=== PATIENT | male | born 1960 | race Two or more races ===

== ENCOUNTER 2017-09-12 14:31 | Emergency (ER) | payer SELFPAY ==
[~2017-09-12] VITALS: Ht 172.7 cm; Wt 99.8 kg
[2017-09-12] MEDS ORDERED: IV NORMAL SALINE 1000ML BAG 1,000 ML IV SCH (15:27)
[2017-09-12] MEDS ORDERED: HYDROmorphone 2 MG/ML VIAL IV/SQ PRN (15:30)
[2017-09-12] MEDS ORDERED: 0.9 % SODIUM CHLORIDE 10 ML DISP.SYRIN. IV PRN (15:30)
[2017-09-12] MEDS ORDERED: ONDANSETRON PF 4 MG/2 ML VIAL. IV ONE (15:30)
--- NOTE | 2017-09-12 15:33 | PHYS DOC ---
Past Medical History Past Medical History: Diabetes-Type II Past Surgical History: No Surgical History Adult General Chief Complaint Chief Complaint: FLANK PAIN HPI HPI This is a pleasant 57-year-old man albanian speaking male with a diabetes who presents with right lower back pain that began last week and now sharp lower abdominal pain with difficulty urinating that began this morning. Patient realizes he was feeling bad last week and saw her primary care doctor for which she had routine blood work done and was diagnosed with type 2 diabetes. He was placed on pain medications for his back pain and difficulty urinating as well as an oral antidiabetic medication. He began having difficulty urinating progressively over the week difficulty initiating his stream with decreased stream strength and now difficulty urinating at all today. Patient describes sharp lower abdominal pain described as uncomfortable with no radiation to the back, he is mildly nauseous but no vomiting no diarrhea no fevers no chills no UTI symptoms. He's noted no blood in his urine, known trauma to his abdomen. Patient denies any sick contacts or prior history of the same. Patient's pain is moderate 9 of 10 at this time he is having difficult time resting and sitting as he is doing comfortable. Review of Systems Review of Systems Constitutional: Denies fever or chills [] Eyes: Denies change in visual acuity, redness, or eye pain [] HENT: Denies nasal congestion or sore throat [] Respiratory: Denies cough or shortness of breath [] Cardiovascular: No additional information not addressed in HPI [] GI: Does have some lower abdominal pain with mild nausea no vomiting bloody stools or diarrhea or constipation. : Patient describes urgency and dysuria without hematuria Musculoskeletal: He did have some lower back pain that began earlier last week. Denies any joint pain Integument: Denies rash or skin lesions [] Neurologic: Denies headache, focal weakness or sensory changes [] Endocrine: Denies polyuria or polydipsia [] All other systems were reviewed and found to be within normal limits, except as documented in this note. Current Medications Current Medications Current Medications Medications (Trade) Dose Ordered Sig/Bo Start Time Stop Time Status Last Admin Dose Admin Fentanyl Citrate (Fentanyl 2ml Vial) 100 mcg STK-MED ONCE 09/12/17 15:51 09/12/17 15:52 DC Hydromorphone HCl (Dilaudid) 1 mg PRN Q15MIN PRN 09/12/17 15:30 09/12/17 15:48 DC Ketorolac Tromethamine (Toradol) 30 mg 1X ONCE 09/12/17 16:00 09/12/17 16:01 DC 09/12/17 15:44 30 MG Ondansetron HCl (Zofran) 4 mg 1X ONCE 09/12/17 15:30 09/12/17 15:32 DC 09/12/17 15:44 4 MG Sodium Chloride (Normal Saline Flush) 10 ml QSHIFT PRN 09/12/17 15:30 Allergies Allergies Allergies Coded Allergies Type Severity Reaction Last Updated Verified codeine Allergy Intermediate 09/12/17 Yes Physical Exam Physical Exam Constitutional: Well developed, well nourished, mildly uncomfortable mildly diaphoretic HENT: Normocephalic, atraumatic, bilateral external ears normal, oropharynx moist, [] Neck: Normal range of motion, no tenderness, supple, no stridor. [] Cardiovascular:Heart rate regular rhythm, no murmur [] Lungs & Thorax: Bilateral breath sounds clear to auscultation [] Abdomen: Bowel sounds normal, soft, no masses, no pulsatile masses. No guarding rebound organomegaly no specific Hansen's or McBurney's point tenderness to palpation patient does have mild tenderness over the suprapubic region with no obvious distention of his bladder.[] Skin: Warm and diaphoretic no erythema no rash Back: No tenderness, no CVA tenderness. [] Extremities: No tenderness, no cyanosis, no clubbing, ROM intact, no edema. [] Neurologic: Alert and oriented X 3, Psychologic: Affect normal, judgement normal, mood normal. [] Current Patient Data Vital Signs Vital Signs Date Time Temp Pulse Resp B/P (MAP) Pulse Ox O2 Delivery O2 Flow Rate FiO2 09/12/17 16:01 20 100 Room Air 09/12/17 15:00 100 190/123 (145) Lab Values Laboratory Tests Test 09/12/17 15:20 White Blood Count 7.6 x10^3/uL (4.0-11.0) Red Blood Count 4.12 x10^6/uL (4.30-5.70) L Hemoglobin 13.1 g/dL (13.0-17.5) Hematocrit 38.5 % (39.0-53.0) L Mean Corpuscular Volume 94 fL (79-100) Mean Corpuscular Hemoglobin 32 pg (25-35) Mean Corpuscular Hemoglobin Concent 34 g/dL (31-37) Red Cell Distribution Width 12.6 % (11.5-14.5) Platelet Count 267 x10^3/uL (140-400) Neutrophils (%) (Auto) 75 % (31-73) H Lymphocytes (%) (Auto) 19 % (24-48) L Monocytes (%) (Auto) 5 % (0-9) Eosinophils (%) (Auto) 0 % (0-3) Basophils (%) (Auto) 0 % (0-3) Neutrophils # (Auto) 5.7 x10^3uL (1.8-7.7) Lymphocytes # (Auto) 1.5 x10^3/uL (1.0-4.8) Monocytes # (Auto) 0.4 x10^3/uL (0.0-1.1) Eosinophils # (Auto) 0.0 x10^3/uL (0.0-0.7) Basophils # (Auto) 0.0 x10^3/uL (0.0-0.2) Urine Collection Type Unknown Urine Color Warren Urine Clarity Clear Urine pH 5.5 Urine Specific [place] >=1.030 Urine Protein Negative mg/dL (NEG-TRACE) Urine Glucose (UA) >=1000 mg/dL (NEG) Urine Ketones (Stick) Negative mg/dL (NEG) Urine Blood Negative (NEG) Urine Nitrite Negative (NEG) Urine Bilirubin Negative (NEG) Urine Urobilinogen Dipstick 1.0 mg/dL (0.2 mg/dL) Urine Leukocyte Esterase Negative (NEG) Urine RBC Rare /HPF (0-2) Urine WBC Rare /HPF (0-4) Urine Squamous Epithelial Cells Few /LPF Urine Bacteria 0 /HPF (0-FEW) Urine Mucus Marked /LPF Sodium Level 132 mmol/L (136-145) L Potassium Level 3.4 mmol/L (3.5-5.1) L Chloride Level 95 mmol/L (98-107) L Carbon Dioxide Level 24 mmol/L (21-32) Anion Gap 13 (6-14) Blood Urea Nitrogen 16 mg/dL (8-26) Creatinine 1.0 mg/dL (0.7-1.3) Estimated GFR (Cockcroft-Gault) 77.6 BUN/Creatinine Ratio 16 (6-20) Glucose Level 348 mg/dL (70-99) H Calcium Level 9.3 mg/dL (8.5-10.1) Total Bilirubin 1.0 mg/dL (0.2-1.0) Aspartate Amino Transferase (AST) 28 U/L (15-37) Alanine Aminotransferase (ALT) 95 U/L (16-63) H Alkaline Phosphatase 373 U/L (46-116) H Total Protein 8.5 g/dL (6.4-8.2) H Albumin 3.7 g/dL (3.4-5.0) Albumin/Globulin Ratio 0.8 (1.0-1.7) L Lipase 179 U/L (73-393) Laboratory Tests 09/12/17 15:20 Laboratory Tests 09/12/17 15:20 EKG EKG [] Radiology/Procedures Radiology/Procedures [] [facility] [address] [place], [place] [id number] IMAGING REPORT Signed PATIENT: DEE DEE WISE ACCOUNT: [id number] : 1960 LOCATION: ER AGE: 57 SEX: M EXAM STATUS: REG ER ORD. PHYSICIAN: PASCUAL TAPIA MD REASON: right flank pain lower abdomen pain PROCEDURE: CT ABDOMEN PELVIS WO CONTRAST PQRS Compliance Statement: One or more of the following individualized dose reduction techniques were utilized for this examination: 1. Automated exposure control 2. Adjustment of the mA and/or kV according to patient size 3. Use of iterative reconstruction technique CT ABDOMEN PELVIS WO CONTRAST Clinical Indication: right flank pain lower abdomen pain Comparison: None. Technique: Helical CT imaging of the abdomen and pelvis is performed without IV or oral contrast. Findings: The lung bases are clear. Cardiac size normal. There is fatty infiltration of the liver with mild focal fatty sparing along the gallbladder fossa. The gallbladder, spleen, pancreas, adrenal glands, and abdominal aorta caliber are normal. There is no renal, ureteral, or bladder calculus. No perinephric stranding or hydronephrosis. Stomach not well distended. No dilated small bowel. There is no colon wall thickening. The appendix is normal. No abdominal adenopathy or free fluid. The bladder is moderately distended and there is mild perivesical induration. No urinary bladder wall thickening is identified. The prostate is moderately enlarged. There is no pelvic free fluid. No acute bone abnormality. IMPRESSION: 1. The prostate is moderately enlarged. 2. The urinary bladder is moderately distended and there is mild perivesical induration. Considerations include nonspecific cystitis or chronic bladder outlet obstruction. 3. No obstructive uropathy. 4. There is fatty infiltration of the liver. DICTATED and SIGNED BY: ZHAO SIMONS MD DATE: 09/12/17 8105 CC: PASCUAL TAPIA MD; NO PCP ~ Course & Med Decision Making Course & Med Decision Making Pertinent Labs and Imaging studies reviewed. (See chart for details) Quinteros diagnosis initially upon arrival considered []Acute pancreatitis. Appendicitis. Acute hepatitis. Peptic ulcer disease. Nonulcer dyspepsia. Irritable bowel disease. Functional gallbladder disorder. Sphincter of Oddi dysfunction. Diseases of the right kidney. Right-sided pneumonia. Xpns-[id number]-[id number] syndrome Subhepatic or intraabdominal abscess. Perforated viscus. Cardiac ischemia. Black spider envenomation kidney stones, UTI, pyelonephritis, Patient's pain is improved with fluids and antiemetics and pain medication while here in the emergency department. Time is now 4:30 PM Patient's urinalysis was reviewed by me demonstrates glucose but no evidence of ketonuria, although this is only measuring beta hydroxybutyrate this has not been is not in DKA. A stone the patient's bicarbonate and anion gap doubt DKA. Patient's white blood cell count is normal patient's H&H is nice and stable patient's BUN/ creatinine is also normal. Patient is likely suffering from either a any stone or a prosthetic hyperplasia might be causing obstruction. Laboratory Tests Test 09/12/17 15:20 White Blood Count 7.6 x10^3/uL (4.0-11.0) Red Blood Count 4.12 x10^6/uL (4.30-5.70) Hemoglobin 13.1 g/dL (13.0-17.5) Hematocrit 38.5 % (39.0-53.0) Mean Corpuscular Volume 94 fL (79-100) Mean Corpuscular Hemoglobin 32 pg (25-35) Mean Corpuscular Hemoglobin Concent 34 g/dL (31-37) Red Cell Distribution Width 12.6 % (11.5-14.5) Platelet Count 267 x10^3/uL (140-400) Neutrophils (%) (Auto) 75 % (31-73) Lymphocytes (%) (Auto) 19 % (24-48) Monocytes (%) (Auto) 5 % (0-9) Eosinophils (%) (Auto) 0 % (0-3) Basophils (%) (Auto) 0 % (0-3) Neutrophils # (Auto) 5.7 x10^3uL (1.8-7.7) Lymphocytes # (Auto) 1.5 x10^3/uL (1.0-4.8) Monocytes # (Auto) 0.4 x10^3/uL (0.0-1.1) Eosinophils # (Auto) 0.0 x10^3/uL (0.0-0.7) Basophils # (Auto) 0.0 x10^3/uL (0.0-0.2) Urine Collection Type Unknown Urine Color Warren Urine Clarity Clear Urine pH 5.5 Urine Specific [place] >=1.030 Urine Protein Negative mg/dL (NEG-TRACE) Urine Glucose (UA) >=1000 mg/dL (NEG) Urine Ketones (Stick) Negative mg/dL (NEG) Urine Blood Negative (NEG) Urine Nitrite Negative (NEG) Urine Bilirubin Negative (NEG) Urine Urobilinogen Dipstick 1.0 mg/dL (0.2 mg/dL) Urine Leukocyte Esterase Negative (NEG) Urine RBC Rare /HPF (0-2) Urine WBC Rare /HPF (0-4) Urine Squamous Epithelial Cells Few /LPF Urine Bacteria 0 /HPF (0-FEW) Urine Mucus Marked /LPF Sodium Level 132 mmol/L (136-145) Chloride Level 95 mmol/L (98-107) Carbon Dioxide Level 24 mmol/L (21-32) Anion Gap 13 (6-14) Blood Urea Nitrogen 16 mg/dL (8-26) Estimated GFR (Cockcroft-Gault) 77.6 BUN/Creatinine Ratio 16 (6-20) Glucose Level 348 mg/dL (70-99) Calcium Level 9.3 mg/dL (8.5-10.1) Total Bilirubin 1.0 mg/dL (0.2-1.0) Aspartate Amino Transf (AST/SGOT) 28 U/L (15-37) Alkaline Phosphatase 373 U/L (46-116) Total Protein 8.5 g/dL (6.4-8.2) Albumin 3.7 g/dL (3.4-5.0) Albumin/Globulin Ratio 0.8 (1.0-1.7) Lipase 179 U/L (73-393) Miguel Disclaimer Dragon Disclaimer This electronic medical record was generated, in whole or in part, using a voice recognition dictation system. Departure Departure Impression: Primary Impression: Enlarged prostate with urinary retention Additional Impressions: Hyperglycemia Hypokalemia Hyponatremia Disposition: HOME, SELF-CARE Condition: IMPROVED Referrals: WILI KULKARNI MD Patient Instructions: Benign Prostatic Hypertrophy, Indwelling Urinary Catheter Care-Brief, Urinary Retention, Acute, Male Additional Instructions: discharge: I've spoken with the patient and/or caregivers. I've explained the patient's condition, diagnosis and treatment plan based on information available to me at this time. I've answered the patient's and/or caregivers questions and addressed any concerns. The patient and/or caregivers have a good understanding the patient's diagnosis, condition and treatment plan as can be expected at this point. Vital signs have been stabilized. The patient's condition is stable for discharge from the emergency department. The patient will pursue further outpatient evaluation with her primary care provider or other designated consulting physician as outlined in the discharge instructions. Patient and/or caregivers are agreeable to this plan of care and follow-up instructions have been explained in detail. The patient and/or caregivers have received these instructions in written format and expressed understanding of these discharge instructions. The patient and her caregivers are aware that if any significant change in condition or worsening of symptoms should prompt him to immediately return to this of the closest emergency department. If an emergent department is not readily available I would encourage him to call 911. Follow-up urology as arranged by your primary care provider Scripts Tamsulosin Hcl (FLOMAX) 0.4 Mg Cap.er.24h 1 CAP PO DAILY, #30 CAP 0 Refills Prov: PASCUAL TAPIA MD 09/12/17 Problem Qualifiers PASCUAL TAPIA MD Sep 12, 2017 15:33
[2017-09-12 15:35] LABS: BASO % 0 % (0-3); EOS % 0 % (0-3); HEMATOCRIT 38.5 % (39.0-53.0); HEMOGLOBIN 13.1 g/dL (13.0-17.5); LYMPH # 1.5 x10^3/uL (1.0-4.8); LYMPH % 19 % (24-48); MEAN CORPUSCULAR HEMOGLOBIN 32 pg (25-35); MEAN CORPUSCULAR HGB CONC 34 g/dL (31-37); MEAN CORPUSCULAR VOLUME 94 fL (79-100); MONO % 5 % (0-9); NEUT % 75 % (31-73); PLATELET COUNT 267 x10^3/uL (140-400); RED BLOOD COUNT 4.12 x10^6/uL (4.30-5.70); RED CELL DISTRIBUTION WIDTH 12.6 % (11.5-14.5); WHITE BLOOD COUNT 7.6 x10^3/uL (4.0-11.0)
[2017-09-12 15:38] LABS: BILIRUBIN,URINE NEGATIVE (NEG); GLUCOSE,URINE >=1000 mg/dL (NEG); PH,URINE 5.5; PROTEIN,URINE NEGATIVE (NEG-TRACE)
[2017-09-12 15:49] LABS: CALCIUM 9.3 mg/dL (8.5-10.1); GFR 77.6; POTASSIUM 3.4 mmol/L (3.5-5.1)
[2017-09-12] MEDS ORDERED: fentaNYL PF VIAL 100 MCG/2 ML VIAL ONE (15:51)
[2017-09-12 15:54] LABS: ALBUMIN 3.7 g/dL (3.4-5.0); ALBUMIN/GLOBULIN RATIO 0.8 (1.0-1.7); TOTAL PROTEIN 8.5 g/dL (6.4-8.2)
[2017-09-12 15:55] LABS: NITRITE,URINE NEGATIVE (NEG)
[2017-09-12 15:58] LABS: BACTERIA,URINE 0 /HPF (0-FEW); RBC,URINE RARE /HPF (0-2); SQUAMOUS EPITHELIAL CELL,UR FEW /LPF; WBC,URINE RARE /HPF (0-4)
[2017-09-12] MEDS ORDERED: KETOROLAC 30 MG/ML INJ. IV ONE (16:00)
[2017-09-12] MEDS ORDERED: fentaNYL PF VIAL 100 MCG/2 ML VIAL IV ONE (16:15)
--- NOTE | 2017-09-12 16:33 | RAD ---
PQRS Compliance Statement: One or more of the following individualized dose reduction techniques were utilized for this examination: 1. Automated exposure control 2. Adjustment of the mA and/or kV according to patient size 3. Use of iterative reconstruction technique CT ABDOMEN PELVIS WO CONTRAST Clinical Indication: right flank pain lower abdomen pain Comparison: None. Technique: Helical CT imaging of the abdomen and pelvis is performed without IV or oral contrast. Findings: The lung bases are clear. Cardiac size normal. There is fatty infiltration of the liver with mild focal fatty sparing along the gallbladder fossa. The gallbladder, spleen, pancreas, adrenal glands, and abdominal aorta caliber are normal. There is no renal, ureteral, or bladder calculus. No perinephric stranding or hydronephrosis. Stomach not well distended. No dilated small bowel. There is no colon wall thickening. The appendix is normal. No abdominal adenopathy or free fluid. The bladder is moderately distended and there is mild perivesical induration. No urinary bladder wall thickening is identified. The prostate is moderately enlarged. There is no pelvic free fluid. No acute bone abnormality. IMPRESSION: 1. The prostate is moderately enlarged. 2. The urinary bladder is moderately distended and there is mild perivesical induration. Considerations include nonspecific cystitis or chronic bladder outlet obstruction. 3. No obstructive uropathy. 4. There is fatty infiltration of the liver.
[2017-09-12] MEDS ORDERED: TAMS0.4C97 PO (16:52)
[2017-09-12 16:57] VITALS: BP 161/113
== END 2017-09-12 17:19 | disposition home or self-care (01) ==
LOC: ER 14:31
DX: N40.1 Benign prostatic hyperplasia with lower urinary tract symptoms (principal); R33.8 Other retention of urine; E87.6 Hypokalemia; E87.1 Hypo-osmolality and hyponatremia; E11.65 Type 2 diabetes mellitus with hyperglycemia; Z88.5 Allergy status to narcotic agent
CPT/HCPCS: 36415; 74176; 80053; 81001; 83690; 85025; 96361; 96374; 96375; 99285; J1885; J2405; J3010; J7030